=== PATIENT | male | born 1960 | race Asian ===

== ENCOUNTER 2024-03-20 05:31 | Day surgery (SDC) | payer OTHER ==
[~2024-03-20] VITALS: Ht 167.6 cm; Wt 72.7 kg
[~2024-03-20 05:31] MED LIST: CHOL25TA4 PO; CYCLOPENTOLATE HCL 1% 2 ML OPHTHALMIC SOLUTION ONE; FLUT16SP NASAL; KETOROLAC TROMETHAMINE 0.5% 5 ML OPHTHALMIC SOLUTION ONE; LISI20TA24 PO; LORA10TA7 PO; MOXIFLOXACIN HCL 0.5% 3 ML OPHTHALMIC SOLUTION ONE; PHENYLEPHRINE HCL 2.5% 2 ML OPHTHALMIC SOLUTION ONE; PROP10DR4 OU; RINGERS SOLUTION,LACTATED 500 ML IV ONE; TETRACAINE HCL/PF 0.5% 4 ML OPHTHALMIC SOLUTION ONE; TROPICAMIDE 1% 2 ML OPHTHALMIC SOLUTION ONE
[2024-03-20] MEDS: CYCLOPENTOLATE HCL 1% 2 ML OPHTHALMIC SOLUTION OD SCH (06:28)
[2024-03-20] MEDS: KETOROLAC TROMETHAMINE 0.5% 5 ML OPHTHALMIC SOLUTION OD SCH (06:28)
[2024-03-20] MEDS: PHENYLEPHRINE HCL 2.5% 2 ML OPHTHALMIC SOLUTION OD SCH (06:29)
[2024-03-20] MEDS: TROPICAMIDE 1% 2 ML OPHTHALMIC SOLUTION OD SCH (06:29)
[2024-03-20] MEDS: TETRACAINE HCL/PF 0.5% 4 ML OPHTHALMIC SOLUTION OD SCH (06:30)
[2024-03-20] MEDS: MOXIFLOXACIN HCL 0.5% 3 ML OPHTHALMIC SOLUTION OD SCH (06:32)
[2024-03-20] MEDS: RINGERS SOLUTION,LACTATED 500 ML IV ONE (06:58)
[2024-03-20] MEDS ORDERED: LIDOCAINE/PF 1% 30 ML VIAL ONE (07:25)
[2024-03-20] MEDS: POVIDONE-IODINE 5% 30 ML OPHTHALMIC SOLUTION ONE (07:50)
[2024-03-20] MEDS: NEOMYCIN/POLYMYXIN B/DEXAMETH 3.5 GM OPHTHALMIC OINTMENT ONE (07:50)
[2024-03-20] MEDS: LIDOCAINE/PF 1% 2 ML VIAL ONE (07:50)
[2024-03-20] MEDS: BALANCED SALT 15 ML OPHTHALMIC IRRIG.SOLN ONE (07:50)
[2024-03-20] MEDS: TETRACAINE HCL/PF 0.5% 4 ML OPHTHALMIC SOLUTION OD ONE (07:50)
[2024-03-20] MEDS: EPINEPHrine 1:1,000 [1 MG/ML] VIAL ONE (07:50)
[2024-03-20] MEDS ORDERED: PrednisoLONE ACETATE 1% 5 ML OPHTHALMIC SUSPENSION ONE (07:51)
[2024-03-20] MEDS ORDERED: MOXIFLOXACIN HCL 0.5% 3 ML OPHTHALMIC SOLUTION ONE (07:52)
[2024-03-20] MEDS ORDERED: FentaNYL CITRATE PF 100 MCG/2 ML VIAL IVP ONE (12:00)
[2024-03-20] MEDS ORDERED: MIDAZOLAM HCL 2 MG/2 ML VIAL IVP ONE (12:00)
[2024-03-20] MEDS ORDERED: LIDOCAINE/PF 1% 2 ML VIAL ONE (14:46)
== END 2024-03-20 09:00 | disposition home or self-care (01) ==
LOC: SURGERY 05:31
PROVIDERS: ATTEND Ophthalmology
DX: H25.11 Age-related nuclear cataract, right eye (principal); I10 Essential (primary) hypertension; Z98.890 Other specified postprocedural states; Z79.899 Other long term (current) drug therapy
CPT/HCPCS: 66984; 93005; J0171; J3010; J3490; J2250; J7120; V2632